=== PATIENT | male | born 1995 | race Caucasian/White ===

== ENCOUNTER 2018-04-02 12:28 | Emergency (ER) | payer SELFPAY ==
[2018-04-02 12:41] VITALS: BP 134/84
--- NOTE | 2018-04-02 13:31 | ED Physician Documentation ---
PD HPI HEENT - Stated complaint Stated Complaint: LEFT FACE SWOLLEN - Chief complaint Chief Complaint: Heent - History obtained from History obtained from: Patient - History of Present Illness Timing - onset: How many months ago (2) Timing - duration: Months (2) Timing - details: Gradual onset, Still present, Waxing and waning Location: Tooth Improves: Medication, Other (poking swollen area and draininig pus) Worsens: Everything Similar symptoms before: Has not had sx before Recently seen: Not recently seen - Additional information Additional information: 22-year-old male who is had no dental care for the past 2 years has developed pain in his left upper jaw with some swelling. He states that previously he has poked the area where the swelling and it has had some relief with the release of pus. He has had to call off work today because of the pain associated with this and there is facial swelling. Review of Systems Constitutional: denies: Fever Eyes: denies: Decreased vision Ears: denies: Ear pain Nose: reports: Congestion Throat: reports: Dental pain / toothache Cardiac: denies: Chest pain / pressure Respiratory: denies: Dyspnea, Cough PD PAST MEDICAL HISTORY - Past Medical History Respiratory: Asthma - Past Surgical History Past Surgical History: No - Present Medications Home Medications: Ambulatory Orders Medication Instructions Recorded Confirmed Amoxicillin 875 mg PO BID #14 tablet 04/02/18 - Allergies Allergies/Adverse Reactions: Allergies Allergy/AdvReac Type Severity Reaction Status Date / Time No Known Drug Allergies Allergy Verified 03/03/15 20:29 - Social History Does the pt smoke?: Yes Smoking Status: Current every day smoker Does the pt drink ETOH?: Yes Does the pt have substance abuse?: No PD ED PE NORMAL - Vitals Vital signs reviewed: Yes (hypertensive ) - General General: Alert and oriented X 3, No acute distress, Well developed/nourished - HEENT HEENT: Atraumatic, PERRL, EOMI, Other (there is left facial swelling over the maxilla posteriorly The corresponding area of of the buccal fold is swollen and tender and without fluctuance. This is roughly over area #13 and #14. ) - Neck Neck: Supple, no meningeal sign, No bony TTP - Respiratory Respiratory: No respiratory distress - Derm Derm: Normal color, Warm and dry, No rash - Extremities Extremities: No deformity, No edema - Neuro Neuro: No motor deficit, No sensory deficit Eye Opening: Spontaneous Motor: Obeys Commands Verbal: Oriented GCS Score: 15 - Psych Psych: Normal mood, Normal affect PD ED PE EXPANDED - HEENT HEENT Visual: 1 - abscess, swelling, tenderness Results - Vitals Vitals: Vital Signs - 24 hr 04/02/18 12:36 Temperature 37.2 C Heart Rate 93 Respiratory 16 Rate Blood Pressure 134/84 H O2 Saturation 99 Oxygen O2 Source Room air PD MEDICAL DECISION MAKING - ED course Complexity details: considered differential, d/w patient ED course: 22-year-old male with an abscess to his left upper jaw does not have ripening. We will place him on some amoxicillin and he will return if he has fluctuance. Departure - Departure Disposition: 01 Home, Self Care Clinical Impression: Dental abscess Condition: Stable Instructions: ED Abscess Dental Follow-Up: [facility] [Provider Group] Prescriptions: Amoxicillin 875 mg PO BID #14 tablet Forms: Activity restrictions
== END 2018-04-02 13:38 | disposition home or self-care (01) ==
LOC: ED 12:28
DX: K04.7 Periapical abscess without sinus (principal); F17.200 Nicotine dependence, unspecified, uncomplicated
CPT/HCPCS: 99283

== ENCOUNTER 2018-12-06 00:40 | Emergency (ER) | payer SELFPAY ==
[2018-12-06] MEDS ORDERED: ACETAMINOPHEN 325 MG TABLET PO STA (01:10)
--- NOTE | 2018-12-06 01:30 | ED Physician Documentation ---
PD HPI HEAD INJURY - Stated complaint Stated Complaint: FALL - Chief complaint Chief Complaint: Trauma Hd/Nk - History obtained from History obtained from: Patient, Family - History of Present Illness Mechanism of head injury: Fell Where head injury occurred: Home Timing - onset: How many hours ago (4) Pain level max: 8 Pain level now: 7 Location of injury: Left (roman catholic) Quality of pain: Pain, Throbbing, Aching Associated symptoms: AMS (states "feels out of it and lightheaded"). No: LOC, Amnesia, Nausea / vomiting, Neck pain, Paresthesias, Seizures, Ear drainage, Nasal drainage, Other Symptoms improve with: Rest Symptoms worsen with: Palpation Contributing factors: No: Anticoagulated, Intoxicated Similar symptoms before: Has not had sx before Recently seen: Not recently seen - Additional information Additional information: Patient tripped walking down the stairs at home, striking the rail with the left roman catholic. Has had increasing pain since that time and feels "out of it". Review of Systems Eyes: denies: Photophobia Ears: denies: Ear pain Nose: denies: Rhinorrhea / runny nose, Congestion Throat: denies: Sore throat Cardiac: denies: Chest pain / pressure Respiratory: denies: Cough GI: denies: Abdominal Pain, Vomiting, Diarrhea Skin: denies: Rash Musculoskeletal: denies: Neck pain, Back pain Neurologic: denies: Focal weakness, Numbness, Seizure, Confused, LOC PD PAST MEDICAL HISTORY - Past Medical History Past Medical History: Yes Cardiovascular: None Respiratory: Asthma Neuro: None Endocrine/Autoimmune: None GI: None : None HEENT: None Psych: None Musculoskeletal: None Derm: None - Past Surgical History Past Surgical History: Yes General: Other - Present Medications Home Medications: Ambulatory Orders Medication Instructions Recorded Confirmed Amoxicillin 875 mg PO BID #14 tablet 04/02/18 - Allergies Allergies/Adverse Reactions: Allergies Allergy/AdvReac Type Severity Reaction Status Date / Time No Known Drug Allergies Allergy Verified 12/06/18 00:54 - Social History Does the pt smoke?: Yes Smoking Status: Current every day smoker Does the pt drink ETOH?: Yes Does the pt have substance abuse?: No - Immunizations Immunizations are current?: No - POLST Patient has POLST: No PD ED PE NORMAL - Vitals Vital signs reviewed: Yes - General General: Alert and oriented X 3, No acute distress, Well developed/nourished - HEENT HEENT: PERRL, Ears normal, Moist mucous membranes, Pharynx benign, Other (Mild hematoma to the left roman catholic. Tenderness to palpation present. 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, No motor deficit, No sensory deficit, Normal speech Eye Opening: Spontaneous Motor: Obeys Commands Verbal: Oriented GCS Score: 15 - Psych Psych: Normal mood, Normal affect Results - Vitals Vitals: Vital Signs - 24 hr 12/06/18 12/06/18 00:56 01:52 Temperature 36.3 C L Heart Rate 70 58 L Respiratory 17 15 Rate Blood Pressure 128/82 H 123/65 O2 Saturation 100 97 Oxygen O2 Source Room air - Rads (name of study) Head CT Radiology: Prelim report reviewed, EMP read contemporaneously, See rad report (No acute intracranial abnormality) PD MEDICAL DECISION MAKING - ED course Complexity details: reviewed results, re-evaluated patient, considered differential, d/w patient, d/w family ED course: 23-year-old male with a closed head injury. No acute findings on head CT. Head CT was undertaken as he was having worsening pain and was altered per his . Head injury instructions given at bedside. Patient counseled regarding signs and symptoms for which I believe and urgent re-evaluation would be necessary. Patient with good understanding of and agreement to plan and is comfortable going home at this time This document was made in part using voice recognition software. While efforts are made to proofread this document, sound alike and grammatical errors may occur. Departure - Departure Disposition: 01 Home, Self Care Clinical Impression: Head injury Qualifiers: Encounter type: initial encounter Qualified Code(s): S09.90XA - Unspecified injury of head, initial encounter Condition: Good Instructions: ED Head Injury Closed Follow-Up: your,doctor in 1week [Other] Comments: Go home and rest tonight. Return if you worsen. Follow-up with your doctor in 1 week for repeat evaluation. You can use Motrin or Tylenol as needed for pain Forms: Activity restrictions Discharge Date/Time: 12/06/18 01:52
--- NOTE | 2018-12-06 01:42 | CT Report ---
Reason: fall, L yazidism injury Procedure Date: 12/06/2018 Accession Number: [id number] / [id number] Procedure: CT - Head W/O CPT Code: FULL RESULT: EXAM: CT HEAD EXAM DATE: 12/06/2018 01:31 AM. CLINICAL HISTORY: Fall, L yazidism injury. COMPARISON: None. TECHNIQUE: Multiaxial CT images were obtained from the foramen magnum to the vertex. Reformats: Sagittal and coronal. IV contrast: None. In accordance with CT protocol optimization, one or more of the following dose reduction techniques were utilized for this exam: automated exposure control, adjustment of mA and/or KV based on patient size, or use of iterative reconstructive technique. FINDINGS: Parenchyma: No intraparenchymal hemorrhage. No evidence of mass, midline shift, or CT findings of infarction. Anderson-white differentiation is distinct. Extraaxial Spaces: Normal for age. No subdural or epidural collections identified. Ventricles: Normal in size and position. Sinuses and Orbits: Imaged paranasal sinuses, orbits, and mastoids show no significant abnormality. Bones: No evidence of fracture or calvarial defect. Other: None. IMPRESSION: No acute or focal intracranial abnormality. [facility]
[2018-12-06 01:53] VITALS: BP 123/65
== END 2018-12-06 01:52 | disposition home or self-care (01) ==
LOC: ED 00:40
DX: S09.90XA Unspecified injury of head, initial encounter (principal); W01.0XXA Fall on same level from slipping, tripping and stumbling without subsequent striking against object, initial encounter; W10.9XXA Fall (on) (from) unspecified stairs and steps, initial encounter; Y93.01 Activity, walking, marching and hiking; Y92.009 Unspecified place in unspecified non-institutional (private) residence as the place of occurrence of the external cause; F17.200 Nicotine dependence, unspecified, uncomplicated
CPT/HCPCS: 70450; 99283; A9270